=== PATIENT | female | born 1930 | race Caucasian/White ===

== ENCOUNTER 2018-07-10 12:27 | Emergency (ER) | payer MEDICAID, MEDICARE ==
[2018-07-10] MEDS ORDERED: Fluconazole 150 MG Tab PO ONE (16:44)
--- NOTE | 2018-07-10 16:49 | EDM.PDOC ---
ED HPI GENERAL MEDICAL PROBLEM - General Chief Complaint: General Stated Complaint: MEDICAL FROM [facility] Time Seen by Provider: 07/10/18 14:06 Source of Information: Reports: Patient, [place] Records History Limitations: Reports: No Limitations - History of Present Illness INITIAL COMMENTS - FREE TEXT/NARRATIVE: This patient was brought over from a local assisted. The history is that she is dizzy and weak. The patient says that every time she moves her head she gets a spinning sensation. Was uncertain whether she feels like she is spinning or if the room is spinning. When she is just sitting still or lying down everything is okay. She denies any nausea vomiting body aches no abdominal pain she's non-ambulatory and uses a wheelchair only. She denies any urinary symptoms. - Related Data Allergies Allergy/AdvReac Type Severity Reaction Status Date / Time Penicillins Allergy Severe Swelling Verified 07/10/18 13:14 Home Meds: Home Meds Diclofenac Sodium 2 gm TOP TID 07/10/18 [History] Sennosides [Senna] 8.6 mg PO DAILY 07/10/18 [History] Venlafaxine HCl [Venlafaxine ER] 37.5 mg PO DAILY 07/10/18 [History] Past Medical History HEENT History: Reports: Cataract, Impaired Vision, Other (See Below) Other HEENT History: blind in right eye Cardiovascular History: Reports: Hypertension [employer] History: Reports: Musculoskeletal History: Reports: Arthritis, Osteoarthritis Other Musculoskeletal History: Cortsone shot in right knee Psychiatric History: Reports: Depression Endocrine/Metabolic History: Reports: Diabetes, Type II Other Oncologic History: neoplasm of skin Other Dermatologic History: malignant neoplasm of skin - Infectious Disease History Infectious Disease History: Reports: Influenza - Past Surgical History HEENT Surgical History: Reports: Cataract Surgery Cardiovascular Surgical History: Reports: None Female Surgical History: Reports: Breast Biopsy, Mastectomy Other Female Surgeries/Procedures: Mastectomy 2005. Exploratory 35 to 40 years ago Musculoskeletal Surgical History: Reports: None, Hip Replacement Social & Family History - Tobacco Use Smoking Status *Q: Former Smoker Years of Tobacco use: 50 Packs/Tins Daily: 2 Used Tobacco, but Quit: Yes Month/Year Tobacco Last Used: 2003 Second Hand Smoke Exposure: No - Caffeine Use Caffeine Use: Reports: Coffee Other Caffeine Use: 3 cups per day - Alcohol Use Days Per Week of Alcohol Use: 1 Number of Drinks Per Day: 1 Total Drinks Per Week: 1 - Recreational Drug Use Recreational Drug Use: No ED ROS GENERAL - Review of Systems Review Of Systems: See Below Constitutional: Reports: No Symptoms HEENT: Reports: No Symptoms Respiratory: Reports: No Symptoms Cardiovascular: Reports: No Symptoms Endocrine: Reports: No Symptoms GI/Abdominal: Reports: No Symptoms : Reports: No Symptoms Musculoskeletal: Reports: No Symptoms Skin: Reports: No Symptoms Neurological: Reports: Dizziness Psychiatric: Reports: No Symptoms Hematologic/Lymphatic: Reports: No Symptoms ED EXAM, GENERAL - Physical Exam Exam: See Below Exam Limited By: No Limitations General Appearance: Alert, WD/WN, No Apparent Distress (This lady is alert she is quite pleasant and is able to answer questions appropriately.) Eye Exam: Bilateral Eye: EOMI, PERRL, Other (No nystagmus seen) Ears: Normal External Exam, Normal TMs (Left tympanic membrane not well seen) Nose: Normal Inspection Throat/Mouth: Normal Inspection Head: Atraumatic Neck: Normal Inspection Respiratory/Chest: Lungs Clear Cardiovascular: Regular Rate, Rhythm, No Murmur Peripheral Pulses: 2+: Radial (L), Radial (R) GI/Abdominal: Soft, Non-Tender Back Exam: Normal Inspection Extremities: Normal Inspection Neurological: Alert, Oriented, CN II-XII Intact, Normal Cognition, Normal Reflexes, No Motor/Sensory Deficits, Other (Unable to do the [place]-Hallpike maneuver in this patient. She was doing fine reclining at 45 but when I sit her up straight she begins having the dizziness and no thickened attempting to do a Silvia-Hallpike would even be possible.) Psychiatric: Normal Affect, Normal Mood Skin Exam: Warm, Dry, Intact Course - Vital Signs Last Recorded V/S: Last Vital Signs Temp 36.4 C 07/10/18 13:18 Pulse 75 07/10/18 15:16 Resp 21 H 07/10/18 15:16 BP 154/88 H 07/10/18 15:48 Pulse Ox 97 07/10/18 15:16 - Orders/Labs/Meds Orders: Active Orders 24 hr Category Date Time Status CULTURE URINE [RM] Stat Lab 07/10/18 16:38 Received Labs: Laboratory Tests 07/10/18 07/10/18 07/10/18 Range/Units 14:57 14:57 15:07 WBC 11.3 H (4.5-11.0) K/uL RBC 4.81 (3.30-5.50) M/uL Hgb 14.4 (12.0-15.0) g/dL Hct 44.3 (36.0-48.0) % MCV 92 (80-98) fL MCH 30 (27-31) pg MCHC 33 (32-36) % Plt Count 258 (150-400) K/uL Neut % (Auto) 66 (36-66) % Lymph % (Auto) 25 (24-44) % [place] % (Auto) 6 (2-6) % Eos % (Auto) 2 (2-4) % Baso % (Auto) 1 (0-1) % Sodium 141 (140-148) mmol/L Potassium 4.1 (3.6-5.2) mmol/L Chloride 103 (100-108) mmol/L Carbon Dioxide 29 (21-32) mmol/L Anion Gap 8.6 (5.0-14.0) mmol/L BUN 22 H (7-18) mg/dL Creatinine 0.8 (0.6-1.0) mg/dL Est Cr Clr Drug Dosing 42.90 mL/min Estimated GFR (MDRD) > 60 (>60) Glucose 147 H (74-106) mg/dL Calcium 9.2 (8.5-10.1) mg/dL Total Bilirubin 0.2 (0.2-1.0) mg/dL AST 20 (15-37) U/L ALT 26 (12-78) U/L Alkaline Phosphatase 68 (46-116) U/L Total Protein 7.8 (6.4-8.2) g/dL Albumin 2.9 L (3.4-5.0) g/dL Globulin 4.9 H (2.3-3.5) g/dL Albumin/Globulin Ratio 0.6 L (1.2-2.2) Urine Color Yellow Urine Appearance Cloudy Urine pH 9.0 H (4.5-8.0) Ur Specific Fletcher 1.010 (1.008-1.030) Urine Protein Trace (NEGATIVE) mg/dL Urine Glucose (UA) Normal (NEGATIVE) mg/dL Urine Ketones Negative (NEGATIVE) mg/dL Urine Occult Blood Trace (NEGATIVE) Urine Nitrite Negative (NEGATIVE) Urine Bilirubin Negative (NEGATIVE) Urine Urobilinogen Normal (NORMAL) mg/dL Ur Leukocyte Esterase Moderate (NEGATIVE) Urine RBC 5-10 H (0-5) Urine WBC Packed H (0-5) Ur Epithelial Cells Moderate Amorphous Sediment Moderate Urine Bacteria Moderate Urine Mucus Few Urine Other See note Urinalysis Comment See note Meds: Medications Discontinued Medications Generic Name Dose Route Start Last Admin Trade Name Dax PRN Reason Stop Dose Admin Fluconazole 150 mg 07/10/18 16:44 07/10/18 16:59 Diflucan PO 07/10/18 16:45 150 mg ONETIME ONE Administration - Re-Assessments/Exams Free Text/Narrative Re-Assessment/Exam: 07/10/18 17:46 This lady received Diflucan 150 mg orally for which was found on a UA. I think it's stoddard to treat the yeast infection before putting her on antibiotics so will treat her for the diseased recheck her urine in a few days and decide whether or not she needs antibiotics. Departure - Departure Time of Disposition: 16:46 Disposition: Home, Self-Care 01 Condition: Fair Clinical Impression: Benign paroxysmal positional vertigo, Vaginal yeast infection - Discharge Information Instructions: Urinary Tract Infection, Adult, Benign Positional Vertigo Referrals: Jeferson Em MD [Primary Care Provider] - Forms: ED Department Discharge Additional Instructions: Mrs Barahona gets vertigo every time she moves her head. For this she was prescribed meclizine or Antivert 25 mg every 6 hours as needed. This medication can cause sedation and could lead to falls although I understand this lady is wheelchair bound. She also had a vaginal yeast infection. She was given 1 dose of Diflucan in the emergency department. She should have a repeat urinalysis in several days to be sure there is not a urinary tract infection. - My Orders Last 24 Hours: My Active Orders 07/10/18 16:38 CULTURE URINE [RM] Stat - Assessment/Plan Last 24 Hours: My Active Orders 07/10/18 16:38 CULTURE URINE [RM] Stat
== END 2018-07-10 17:40 | disposition home or self-care (01) ==
LOC: JP.ED 12:27
DX: H81.10 Benign paroxysmal vertigo, unspecified ear (principal); B37.3 Candidiasis of vulva and vagina; E11.9 Type 2 diabetes mellitus without complications; I10 Essential (primary) hypertension; F32.9 Major depressive disorder, single episode, unspecified; Z88.0 Allergy status to penicillin; Z79.899 Other long term (current) drug therapy; Z87.891 Personal history of nicotine dependence
CPT/HCPCS: 36415; 80053; 81001; 85025; 87086; 99285; A9270; 99283